=== PATIENT | female | born 1985 | race Caucasian/White ===

== ENCOUNTER 2019-11-18 16:03 | Emergency (ER) | payer OTHER, SELFPAY ==
[2019-11-18 16:18] VITALS: BP 122/83; PULSE 77; RESP 13; TEMP 36.9; O2SAT 97
[2019-11-18] MEDS: PROCHLORPERAZINE 10 MG/2 ML VIAL IV (17:23)
[2019-11-18] MEDS: diphenhydrAMINE 50 MG/ML VIAL 25 MG IV (17:23)
[2019-11-18] MEDS: KETOROLAC 60 MG/2 ML VIAL 30 MG IV (17:23)
[2019-11-18] MEDS: SODIUM CHLORIDE 0.9% 1,000 ML 1000 ML IV (17:24)
[2019-11-18 18:59] VITALS: BP 122/77; PULSE 77; RESP 18; O2SAT 99
--- NOTE | 2019-11-18 20:15 | ED_ITS ---
HPI - Headache <YUDITH Thornton - Last Filed: 11/18/19 20:31> General Chief Complaint: Headache Stated Complaint: migraine Time Seen by Provider: 11/18/19 16:23 Source: patient Mode of arrival: Ambulatory Limitations: no limitations History of Present Illness HPI Narrative: This is a 34 year female, nonsmoker, who presents to ED with significant other with My migraine headache. Patient reports she has known migraine headache with nausea and states it usually is triggered by fluorescent lights and changes in barometric pressure. Patient reports her headache is in left side head and above left eye. The pain is in sharp and throbbing in character and rates as 5/10 pain. Patient has taken Naprosyn and Excedrin migraine headache prior coming into ED without much improvement. Patient report her headache is very similar to her usual migraine headache and denies unusual rash, fever, tightness in her neck or vomiting. Related Data Home Medications Medication Instructions Recorded Confirmed sumatriptan succinate 1 tab PO PRN PRN 11/18/19 11/18/19 Allergies Allergy/AdvReac Type Severity Reaction Status Date / Time No Known Drug Allergies Allergy Verified 11/18/19 17:44 Review of Systems <YUDITH Thornton - Last Filed: 11/18/19 20:31> Review of Systems Narrative: General: Denies fever, chills, fatigue, malaise, sweats. HEENT: Denies sinus pain, ear pain, sore throat, difficulty swallowing, dizziness. Respiratory: Denies dyspnea, cough, wheezing, hemoptysis, sputum. Cardiovascular: Denies chest pain, palpitations, orthopnea, edema. Gastrointestinal: Denies (+) nausea, vomiting, abdominal pain, diarrhea, constipation, melena. : Denies dysuria, frequency, incontinence, hematuria, urinary retention. Musculoskeletal: Denies weakness, joint pain or bony pain. Skin: Denies rash, skin lesions, or other. Neurologic: See HPI Psychiatric: No concerning psychosocial issues. 12-point review of systems is negative except for those stated above. Patient History <YUDITH Thornton - Last Filed: 11/18/19 20:31> Surgical History History of eye surgery (Acute) Social History Smoking Status: Never smoker Smoking Status: Never smoker alcohol intake frequency: a few times a month Substance Use Type: does not use Exam <YUDITH Thornton - Last Filed: 11/18/19 20:31> Narrative Exam Narrative: General appearance: well developed, well nourished, in moderate distress. The patient resting in bed with her eyes covered by knitted hat in room with dimmed light. Head: normocephalic, atraumatic, no scalp lesions, non-tender. ENT: Hearing grossly intact. Nose without bleeding, purulent discharge. Mucous membrane moist, no mucosal lesion. Throat without erythema, tonsillar hypertrophy or exudate. Uvula in midline, airway patent. Neck/Thyroid: neck supple, full range of motion, no visible masses or meningeal signs. No JVD, nuchal rigidity, non-tender without lymphadenopathy. Skin: no suspicious rashes, lesions over visible areas. Warm and dry and appropriate color for ethnicity. Heart: no clubbing, no cyanosis, no edema. S1 and S2 normal. RRR w/o murmurs, clicks, or bruits. Lungs: Breathing even and unlabored. No stridor. No accessory muscles used. Able to speak in full sentences. Chest: normal shape and expansion. Abdomen: non-obese, non-distended. Neurologic: alert and oriented. Cognitive exam, LENS BLOCK GAUGER and PNS grossly intact on informal exam. Initial Vital Signs Initial Vital Signs: Vital Signs Temperature 98.5 F 11/18/19 16:18 Pulse Rate 77 11/18/19 16:18 Respiratory Rate 13 11/18/19 16:18 Blood Pressure 122/83 11/18/19 16:18 Pulse Oximetry 97 11/18/19 16:18 <Maru Stoner MD - Last Filed: 11/21/19 09:11> Initial Vital Signs Initial Vital Signs: Vital Signs Temperature 98.5 F 11/18/19 16:18 Pulse Rate 77 11/18/19 16:18 Respiratory Rate 13 11/18/19 16:18 Blood Pressure 122/83 11/18/19 16:18 Pulse Oximetry 97 11/18/19 16:18 Scores <YUDITH Thornton - Last Filed: 11/18/19 20:31> GCS [place] coma scale eye opening: Spontaneous [place] coma scale verbal response: Orientated [place] coma scale motor response: Obey commands [place] coma scale total score: 15 Course <YUDITH Thornton - Last Filed: 11/18/19 20:31> Orders Ordered: Discontinued Medications Diphenhydramine HCl (Benadryl) 25 mg IV NOW ONE Stop: 11/18/19 16:54 Last Admin: 11/18/19 17:23 Dose: 25 mg Documented by: BTONER Sodium Chloride (Normal Saline 0.9%) 1,000 mls @ 1,000 mls/hr IV BOLUS ONE Stop: 11/18/19 17:52 Last Infusion: 11/18/19 18:27 Dose: 0 mls/hr Documented by: Admin: 11/18/19 17:24 Dose: 1,000 mls/hr Documented by: BTONER Ketorolac Tromethamine (Toradol) 30 mg IV NOW ONE Stop: 11/18/19 16:54 Last Admin: 11/18/19 17:23 Dose: 30 mg Documented by: BTONER Prochlorperazine (Compazine) 10 mg IV NOW ONE Stop: 11/18/19 16:54 Last Admin: 11/18/19 17:23 Dose: 10 mg Documented by: BTONER Vital Signs Vital signs: Vital Signs - 8 hr 11/18/19 16:18 11/18/19 18:59 Temperature 98.5 F Pulse Rate 77 77 Respiratory Rate 13 18 Blood Pressure 122/83 122/77 Pulse Oximetry 97 99 <Maru Stoner MD - Last Filed: 11/21/19 09:11> Orders Ordered: Discontinued Medications Diphenhydramine HCl (Benadryl) 25 mg IV NOW ONE Stop: 11/18/19 16:54 Last Admin: 11/18/19 17:23 Dose: 25 mg Documented by: BTONER Sodium Chloride (Normal Saline 0.9%) 1,000 mls @ 1,000 mls/hr IV BOLUS ONE Stop: 11/18/19 17:52 Last Infusion: 11/18/19 18:27 Dose: 0 mls/hr Documented by: Admin: 11/18/19 17:24 Dose: 1,000 mls/hr Documented by: BTONER Ketorolac Tromethamine (Toradol) 30 mg IV NOW ONE Stop: 11/18/19 16:54 Last Admin: 11/18/19 17:23 Dose: 30 mg Documented by: SOULEYMANE Prochlorperazine (Compazine) 10 mg IV NOW ONE Stop: 11/18/19 16:54 Last Admin: 11/18/19 17:23 Dose: 10 mg Documented by: JOSÉ MIGUELONER Vital Signs Vital signs: Vital Signs - 8 hr 11/18/19 16:18 11/18/19 18:59 Temperature 98.5 F Pulse Rate 77 77 Respiratory Rate 13 18 Blood Pressure 122/83 122/77 Pulse Oximetry 97 99 MDM - Headache <YUDITH Thornton - Last Filed: 11/18/19 20:31> Differential Diagnosis Differential diagnosis: Likely migraine, headache and meningitis Medical Records Attestation: I reviewed the patient's medical records. MDM Narrative Medical decision making narrative: This is a 34 year old female who has history of migraine headache presents to ED with similar migraine headache symptoms. Patient does not have nuchal rigidity, unusual rashes, fever. The patient had headache on left side and above the right eye with nausea and photophobia. There was no focal neurological deficit. Patient was medicated with IV fluids, IV antiemetic Reglan, Toradol and Benadryl which resolved patient's headache. Vital signs stable in ED without fever. Patient advised to rest at home with adequate hydration. Return precautions were discussed with the patient and to follow up with PCP for on re-evaluation. Patient verbalized understanding and agreement with treatment plan. Discharge Plan Departure Patient Disposition: Home Clinical Impression: Migraine Qualifiers: Migraine type: unspecified Status migrainosus presence: without status migrainosus Intractability: not intractable Qualified Code(s): G43.909 - Migraine, unspecified, not intractable, without status migrainosus Discharge Date/Time: 11/18/19 18:59 Activity Restrictions/Additional Instructions: You have been diagnosed with [migraine headache with a history of migraine headache. Your treated with IV fluid, IV Toradol, Benadryl and Reglan which improved your pain]. What to do: *Take your medications as directed. *Follow up with your primary care provider in 2-3 days, call for an appointment. Let them know you were seen in the ED and that we asked you to be seen in follow up. *Return to ED if you have any new, worsening, or concerning symptoms, such as [ chest pain, breathing difficulty, unable to tolerate fluids, severe pain, weakness to her extremities, vision change, speech difficulty, fever, rash, or any acute concerns]. Prescriptions: No Action sumatriptan succinate 1 tab PO PRN PRN (Reason: Migraine Headache) RF: 0
== END 2019-11-18 18:59 | disposition home or self-care (01) ==
PROVIDERS: Emergency Provider Nurse Practitioner Family
DX: G43.909 Migraine, unspecified, not intractable, without status migrainosus (principal)
CPT/HCPCS: 96361; 96374; 96375; 99283; 99284; J0780; J1200; J1885